=== PATIENT | male | born 1970 | race Two or more races ===

== ENCOUNTER 2018-01-17 08:50 | Outpatient (CLI) | payer OTHER | END 2018-01-17 09:01 | disposition home or self-care (01) | LOC: SONOGRAMA 08:50 | DX: R31.9 Hematuria, unspecified (principal) ==

== ENCOUNTER 2018-02-28 13:07 | Outpatient (CLI) | payer OTHER | END 2018-02-28 13:16 | disposition home or self-care (01) | LOC: NUCLEAR 13:07 | DX: M81.0 Age-related osteoporosis without current pathological fracture (principal) ==

== ENCOUNTER → 2018-02-28 | Outpatient (CLI) | payer OTHER | END | disposition home or self-care (01) | LOC: MRI 13:36 | DX: M54.5 Low back pain (principal) | CPT/HCPCS: 72148 ==

== ENCOUNTER 2019-11-18 13:15 | Outpatient (CLI) | payer OTHER | END 2019-11-18 16:18 | disposition home or self-care (01) | LOC: CERTIFICAD 13:15 | DX: Z11.1 Encounter for screening for respiratory tuberculosis (principal) ==

== ENCOUNTER 2020-01-01 20:00 | Outpatient (CLI) | payer OTHER | END 2020-01-01 20:10 | disposition home or self-care (01) | LOC: PPH VACUNA 20:00 | DX: Z23 Encounter for immunization (principal) ==

== ENCOUNTER 2020-03-29 08:47 | Outpatient (CLI) | payer OTHER | END 2020-03-29 08:48 | disposition home or self-care (01) | LOC: PPH VACUNA 08:47 | DX: Z23 Encounter for immunization (principal) ==

== ENCOUNTER 2020-06-20 11:33 | Outpatient (CLI) | payer OTHER | END 2020-06-20 13:21 | disposition home or self-care (01) | LOC: LAB 11:33 | PROVIDERS: ATTEND Urology | DX: E03.8 Other specified hypothyroidism (principal); R31.1 Benign essential microscopic hematuria; R73.09 Other abnormal glucose; R10.10 Upper abdominal pain, unspecified; E29.1 Testicular hypofunction; Z20.828 Contact with and (suspected) exposure to other viral communicable diseases ==

== ENCOUNTER 2020-10-28 08:11 | Outpatient (CLI) | payer OTHER | END 2020-10-28 15:04 | disposition home or self-care (01) | LOC: LAB 08:11 | PROVIDERS: ATTEND Internal Medicine Gastroenterology | DX: Z11.52 Encounter for screening for COVID-19 (principal) ==

== ENCOUNTER 2021-01-11 08:00 | Outpatient (CLI) | payer OTHER | END 2021-01-11 08:30 | disposition home or self-care (01) | LOC: PPH VACUNA 08:00 | PROVIDERS: ATTEND Emergency Medicine Pediatric Emergency Medicine | DX: Z23 Encounter for immunization (principal) ==

== ENCOUNTER 2021-12-27 08:00 | Outpatient (CLI) | payer OTHER | END 2021-12-27 08:30 | disposition home or self-care (01) | LOC: PPH VACUNA 08:00 | PROVIDERS: ATTEND Emergency Medicine Pediatric Emergency Medicine | DX: Z23 Encounter for immunization (principal) ==